=== PATIENT | female | born 1985 | race Asian ===

== ENCOUNTER 2016-09-07 09:06 | Outpatient (CLI) | payer OTHER | END 2016-09-07 09:30 | disposition home or self-care (01) | LOC: LAB 09:06 | DX: N39.0 Urinary tract infection, site not specified (principal) | CPT/HCPCS: 87086-90 ==

== ENCOUNTER 2016-11-25 09:18 | Outpatient (CLI) | payer OTHER | END 2016-11-25 12:00 | disposition home or self-care (01) | LOC: LAB 09:18 | DX: N92.3 Ovulation bleeding (principal) | CPT/HCPCS: 84144-90 ==

== ENCOUNTER 2016-12-09 09:24 | Outpatient (CLI) | payer OTHER ==
[2016-12-09 11:28] LABS: % BASOPHILS 0.9 % (0.0-2.0); % EOSINOPHILS 2.6 % (0.0-5.0); % LYMPHOCYTES 42.6 % (20.0-50.0); % MONOCYTES 6.6 % (2.0-10.0); % NEUTROPHILS 47.3 % (40.0-80.0); MEAN CELL VOLUME 89.9 fl (81-100); MEAN CORPUSCULAR HEMOGLOBIN 29.6 pg (27.0-31.0); MEAN CORPUSCULAR HGB CONC 32.9 pg (28.0-36.0); MEAN PLATELET VOLUME 8.8 fl; NEUTROPHILE ABSOLUTE 4.4 Th/cmm (1.8-8.0); RED BLOOD COUNT 4.65 Mil/cmm (3.80-5.10); RED CELL DISTRIBUTION WIDTH 12.5 % (11.5-20.0)
[2016-12-09 11:29] LABS: HEMATOCRIT 41.8 % (35.0-45.0); HEMOGLOBIN 13.7 gm/dL (11.7-15.5); PLATELET COUNT 201 Th/cmm (150-400); WHITE BLOOD COUNT 9.2 Th/cmm (4.8-10.8)
== END 2016-12-09 11:20 | disposition home or self-care (01) ==
LOC: LAB 09:24
DX: D50.9 Iron deficiency anemia, unspecified (principal); N94.89 Other specified conditions associated with female genital organs and menstrual cycle
CPT/HCPCS: 36415-UA; 84702-TC; 85025-TC

== ENCOUNTER 2017-01-23 10:16 | Outpatient (CLI) | payer OTHER | END 2017-01-23 10:33 | disposition home or self-care (01) | LOC: LAB 10:16 | DX: N94.89 Other specified conditions associated with female genital organs and menstrual cycle (principal) | CPT/HCPCS: 36415-UA; 84702-TC ==

== ENCOUNTER 2017-02-01 10:10 | Outpatient (CLI) | payer OTHER ==
[2017-02-01 10:37] LABS: % BASOPHILS 0.6 % (0.0-2.0); % LYMPHOCYTES 23.9 % (20.0-50.0); % MONOCYTES 5.1 % (2.0-10.0); % NEUTROPHILS 69.4 % (40.0-80.0); HEMATOCRIT 39.5 % (35.0-45.0); MEAN CELL VOLUME 90.1 fl (81-100); MEAN CORPUSCULAR HEMOGLOBIN 29.6 pg (27.0-31.0); MEAN CORPUSCULAR HGB CONC 32.9 pg (28.0-36.0); MEAN PLATELET VOLUME 8.7 fl; NEUTROPHILE ABSOLUTE 8.9 Th/cmm (1.8-8.0); PLATELET COUNT 193 Th/cmm (150-400); RED BLOOD COUNT 4.38 Mil/cmm (3.80-5.10); RED CELL DISTRIBUTION WIDTH 12.2 % (11.5-20.0)
[2017-02-01 10:50] LABS: WHITE BLOOD COUNT 12.9 Th/cmm (4.8-10.8)
[2017-02-04 05:12] LABS: RUBELLA IGM AB <20.0 AU/mL (0.0-19.9)
== END 2017-02-01 10:29 | disposition home or self-care (01) ==
LOC: LAB 10:10
DX: Z33.1 Pregnant state, incidental (principal)
CPT/HCPCS: 36415-UA; 85025-TC; 86592-TC; 86762-90; 86850-TC; 86900-TC; 86901-TC; 87086-90; 87340-90

== ENCOUNTER 2017-07-07 09:22 | Outpatient (CLI) | payer OTHER ==
[2017-07-07 11:46] LABS: % BASOPHILS 0.3 % (0.0-2.0); % EOSINOPHILS 1.2 % (0.0-5.0); % LYMPHOCYTES 15.8 % (20.0-50.0); % NEUTROPHILS 77.7 % (40.0-80.0); EOSINOPHILE ABSOLUTE 0.2 Th/cmm (0.1-0.4); HEMOGLOBIN 11.8 gm/dL (12-16); LYMPHOCYTE ABSOLUTE 2.1 Th/cmm (1.5-3.0); MEAN CORPUSCULAR HEMOGLOBIN 30.5 pg (27.0-31.0); MEAN CORPUSCULAR HGB CONC 33.9 pg (28.0-36.0); MEAN PLATELET VOLUME 9.5 fl; MONOCYTE ABSOLUTE 0.7 Th/cmm (0.3-1.0); PLATELET COUNT 207 Th/cmm (150-400); RED BLOOD COUNT 3.86 Mil/cmm (3.80-5.10); RED CELL DISTRIBUTION WIDTH 13.1 % (11.5-20.0)
[2017-07-07 11:49] LABS: HEMATOCRIT 34.7 % (41.0-60)
== END 2017-07-07 09:30 | disposition home or self-care (01) ==
LOC: EEVIPCON 09:22 → LAB 09:22
PROVIDERS: ATTEND General Practice
DX: Z33.1 Pregnant state, incidental (principal)
CPT/HCPCS: 36415-UA; 82947-TC; 85025-TC; 86592-TC

== ENCOUNTER 2017-07-11 09:13 | Outpatient (CLI) | payer OTHER | END 2017-07-11 13:04 | disposition home or self-care (01) | LOC: LAB 09:13 | DX: O99.810 Abnormal glucose complicating pregnancy (principal); Z3A.00 Weeks of gestation of pregnancy not specified | CPT/HCPCS: 36415-UA ==

== ENCOUNTER 2017-07-25 07:05 | Outpatient (CLI) | payer OTHER | END 2017-07-25 11:45 | disposition home or self-care (01) | LOC: LAB 07:05 | DX: O24.419 Gestational diabetes mellitus in pregnancy, unspecified control (principal); Z3A.00 Weeks of gestation of pregnancy not specified | CPT/HCPCS: 36415-UA ==

== ENCOUNTER 2018-03-29 09:59 | Outpatient (CLI) | payer OTHER ==
[2018-03-29 10:33] LABS: % BASOPHILS 0.6 % (0.0-2.0); % EOSINOPHILS 2.5 % (0.0-5.0); % LYMPHOCYTES 23.2 % (20.0-50.0); % MONOCYTES 4.2 % (2.0-10.0); % NEUTROPHILS 69.5 % (40.0-80.0); BASOPHILE ABSOLUTE 0.1 Th/cumm (0-0.2); EOSINOPHILE ABSOLUTE 0.3 Th/cmm (0.1-0.4); LYMPHOCYTE ABSOLUTE 2.7 Th/cmm (1.5-3.0); MEAN CELL VOLUME 85.5 fl (81-100); MEAN CORPUSCULAR HEMOGLOBIN 29.2 pg (27.0-31.0); MEAN CORPUSCULAR HGB CONC 34.2 pg (28.0-36.0); MEAN PLATELET VOLUME 8.3 fl; MONOCYTE ABSOLUTE 0.5 Th/cmm (0.3-1.0); NEUTROPHILE ABSOLUTE 8.2 Th/cmm (1.8-8.0); PLATELET COUNT 220 Th/cmm (150-400); RED BLOOD COUNT 4.44 Mil/cmm (3.80-5.10); RED CELL DISTRIBUTION WIDTH 13.2 % (11.5-20.0); WHITE BLOOD COUNT 11.8 Th/cmm (4.8-10.8)
[2018-03-31 17:09] LABS: HEP B SURFACE AG QL Negative (Negative); RUBELLA IGG AB 1.16 index (Immune >0.99); RUBELLA IGM AB <20.0 AU/mL (0.0-19.9)
== END 2018-03-29 10:17 | disposition home or self-care (01) ==
LOC: LAB 09:59
DX: Z20.6 Contact with and (suspected) exposure to human immunodeficiency virus [HIV] (principal); O23.10 Infections of bladder in pregnancy, unspecified trimester; Z3A.00 Weeks of gestation of pregnancy not specified
CPT/HCPCS: 36415-UA; 85025-TC; 86592-TC; 86703-90; 86703-TC; 86762-90; 86900-TC; 86901-TC; 87086-90; 87340-90; 87341-90; 87491-90

== ENCOUNTER 2018-04-02 11:25 | Outpatient (CLI) | payer OTHER | END 2018-04-02 11:35 | disposition home or self-care (01) | LOC: LAB 11:25 | DX: Z20.6 Contact with and (suspected) exposure to human immunodeficiency virus [HIV] (principal); O23.10 Infections of bladder in pregnancy, unspecified trimester; Z3A.00 Weeks of gestation of pregnancy not specified | CPT/HCPCS: 87389-90 ==

== ENCOUNTER 2018-07-12 09:13 | Outpatient (CLI) | payer OTHER ==
[2018-07-12 09:51] LABS: BASOPHILE ABSOLUTE 0.1 Th/cumm (0-0.2); HEMOGLOBIN 12.4 gm/dL (12-16); LYMPHOCYTE ABSOLUTE 2.7 Th/cmm (1.5-3.0); MEAN CELL VOLUME 89.6 fl (81-100); MEAN CORPUSCULAR HEMOGLOBIN 30.7 pg (27.0-31.0); MEAN PLATELET VOLUME 8.1 fl; RED CELL DISTRIBUTION WIDTH 13.1 % (11.5-20.0)
[2018-07-12 09:53] LABS: % BASOPHILS 0.4 % (0.0-2.0); % EOSINOPHILS 1.6 % (0.0-5.0); % LYMPHOCYTES 18.6 % (20.0-50.0); % NEUTROPHILS 74.4 % (40.0-80.0); EOSINOPHILE ABSOLUTE 0.2 Th/cmm (0.1-0.4); HEMATOCRIT 36.1 % (41.0-60); MEAN CORPUSCULAR HGB CONC 34.3 pg (28.0-36.0); MONOCYTE ABSOLUTE 0.7 Th/cmm (0.3-1.0); NEUTROPHILE ABSOLUTE 10.6 Th/cmm (1.8-8.0); PLATELET COUNT 226 Th/cmm (150-400); RED BLOOD COUNT 4.03 Mil/cmm (3.80-5.10); WHITE BLOOD COUNT 14.3 Th/cmm (4.8-10.8)
== END 2018-07-12 09:45 | disposition home or self-care (01) ==
LOC: LAB 09:13
DX: Z33.1 Pregnant state, incidental (principal)
CPT/HCPCS: 36415-UA; 85025-TC; 86592-TC

== ENCOUNTER 2018-07-26 07:12 | Outpatient (CLI) | payer OTHER | END 2018-07-26 07:30 | disposition home or self-care (01) | LOC: LAB 07:12 | DX: O24.419 Gestational diabetes mellitus in pregnancy, unspecified control (principal); Z3A.00 Weeks of gestation of pregnancy not specified ==